=== PATIENT | female | born 1945 | race African-American/Black ===

== ENCOUNTER → 2016-10-16 | Outpatient (CLI) | payer OTHER, MEDICAID ==
[2012-08-27 10:45] VITALS: BP 141/70
== END ==
LOC: RAD 14:10
PROVIDERS: ATTEND Internal Medicine
DX: Z12.31 Encounter for screening mammogram for malignant neoplasm of breast (principal)
CPT/HCPCS: 77067

== ENCOUNTER 2017-05-25 12:12 | Observation (INO) | payer OTHER, MEDICAID ==
[2017-05-25 14:58] LABS: BASOPHILS # (AUTO) 0.1 X10^3/uL (0.0-0.1); BASOPHILS % (AUTO) 0.9 % (0.2-1.0); EOSINOPHILS # (AUTO) 0.2 x10^3/uL (0.0-0.2); EOSINOPHILS % (AUTO) 1.5 % (0.9-2.9); HEMATOCRIT 36.1 % (36.0-47.0); HEMOGLOBIN 12.2 g/dL (12.0-16.0); LYMPHOCYTES % (AUTO) 18.8 % (21.0-51.0); MEAN CORPUSCULAR HEMOGLOBIN 26.3 pg (27.0-34.0); MEAN CORPUSCULAR HGB CONC 33.7 g/dL (33.0-35.0); MEAN PLATELET VOLUME 9.3 fL (7.4-11.0); MONOCYTES % (AUTO) 8.9 % (0.0-13.0); NEUTROPHILS # (AUTO) 7.5 x10^3/uL (2.2-4.8); NEUTROPHILS % (AUTO) 69.9 % (42.0-75.0); PLATELET COUNT 332 X10^3/uL (150.0-450.0); RED BLOOD COUNT 4.63 X10^6/uL (3.5-5.4); WHITE BLOOD COUNT 10.8 X10^3/uL (3.6-10.0)
[2017-05-25 15:08] LABS: ALBUMIN 3.2 g/dL (3.4-5.0); CALCIUM 8.9 mg/dL (8.5-10.1); CARBON DIOXIDE 25.4 mmol/L (21-32); COR CA(FOR HYPOALB) 9.5 mg/dL (8.5-10.1); CREATININE 1.27 mg/dL (0.55-1.02); TOTAL PROTEIN 7.5 g/dL (6.4-8.2)
[2017-05-25] MEDS: NS 1000 ML 1,000 ML IV SCH (15:13)
--- NOTE | 2017-05-25 15:39 | DR.UPDATE ---
H&P Update History and Physical Update: WAS SEEN IN THE OFFICE TODAY. A H&P WAS COMPLETED PRIOR TO ADMISSION. PATIENT HAS BEEN SEEN AND EXAMINED WITH NO CHANGES NOTED TO H&P. Changes noted: NO Yes with the following:
[2017-05-25] MEDS ORDERED: NS 100 ML IV 100 ML IV ONE (18:02)
--- NOTE | 2017-05-25 18:52 | RAD ---
History: Low back pain Study: Five views lumbar spine including AP and lateral and both obliques and lateral coned view. Comparison: None Findings: There is normal alignment with severe L3-4 and L4-5 disc space narrowing and severe anterio r osteophyte formation about the disc spaces diffusely. There is no fracture or compression demonstra osvaldo. There are cholecystectomy clips. Impression: Severe diffuse degenerative disc disease Reported By:
--- NOTE | 2017-05-25 19:03 | CT ---
CT abdomen and pelvis with contrast Indication: Abdominal pain Technique: Helical images through the abdomen and pelvis with contrast. Coronal and sagittal reformat s. Comparison: 10/18/2016 CT Findings: Limited images through the lower chest shows no acute abnormality with cardiomegaly and vas cular calcifications noted. Review of bone windows shows spine and pelvis degenerative change without destructive osseous lesion. Abdomen: The adrenal glands, spleen, pancreas, stomach and small bowel show no acute abnormality. Non inflamed colonic diverticulum noted the appendix is normal. Small fat containing umbilical hernia not ed. Vascular plaque noted. The right kidney is normal without hydroureteronephrosis. Moderate vascular plaque noted. There is pe ripheral calcification adjacent to a left upper pole renal cyst on axial image 24. Left lower pole re nal cyst seen on axial image 35. Pelvis: The urinary bladder and rectum are normal. Atrophic uterus is noted. No adnexal region lesion s seen. Impression: 1. No significant change in the left upper pole Bosniak 2 F cyst. Recommend MR follow-up in 6 months to exclude neoplasm. 2. Cardiomegaly, vascular calcifications, noninflamed diverticulosis, spine degenerative change other findings as above. Reported By:
[2017-05-25 19:06] LABS: CKMB % 1.4 % (<4); CREATINE KINASE 70 Units/L (26-192); CREATINE KINASE MB < 1.0 ng/mL (0-4.0); TROPONIN I < 0.02 ng/mL (0-1.5)
[2017-05-25 20:15] LABS: BILIRUBIN,URINE NEGATIVE (NEGATIVE); BLOOD/HEMOGLOBIN,URINE NEGATIVE (NEGATIVE); GLUCOSE, URINE NEGATIVE (NEGATIVE); KETONES,URINE NEGATIVE (NEGATIVE); LEUKOCYTE ESTERASE ,URINE NEGATIVE (NEGATIVE); NITRITES,URINE NEGATIVE (NEGATIVE); PROTEIN,URINE 1+ (NEGATIVE); UROBILINOGEN,URINE NORMAL (NORMAL)
[2017-05-25 20:20] LABS: APPEARANCE,URINE CLEAR (CLEAR); COLOR,URINE YELLOW (YELLOW)
[2017-05-25 20:34] LABS: AMORPHOUS SEDIMENT,UR TRACE /HPF (NEGATIVE); BACTERIA,URINE TRACE /HPF (NEGATIVE); RBC,URINE NONE SEEN /HPF (NONE SEEN); SQUAMOUS EPITHELIAL CELL,UR FEW /HPF (NEGATIVE)
[2017-05-25] MEDS: NORCO 5/325 MG TAB PO PRN (21:14)
[2017-05-25 23:11] LABS: CKMB % 1.9 % (<4); CREATINE KINASE 52 Units/L (26-192); CREATINE KINASE MB < 1.0 ng/mL (0-4.0); TROPONIN I < 0.02 ng/mL (0-1.5)
[2017-05-26 02:44] LABS: CKMB % 2.1 % (<4); CREATINE KINASE 48 Units/L (26-192); CREATINE KINASE MB < 1.0 ng/mL (0-4.0); TROPONIN I < 0.02 ng/mL (0-1.5)
[2017-05-26] MEDS: NS 1000 ML 1,000 ML IV SCH ×2 (02:59→15:41)
[2017-05-26] MEDS: NORCO 5/325 MG TAB PO PRN (06:24)
[2017-05-26 06:54] LABS: BASOPHILS # (AUTO) 0.1 X10^3/uL (0.0-0.1); EOSINOPHILS # (AUTO) 0.2 x10^3/uL (0.0-0.2); EOSINOPHILS % (AUTO) 1.7 % (0.9-2.9); HEMOGLOBIN 11.9 g/dL (12.0-16.0); LYMPHOCYTES # (AUTO) 2.2 X10^3/uL (1.3-2.9); LYMPHOCYTES % (AUTO) 24.2 % (21.0-51.0); MEAN CORPUSCULAR HEMOGLOBIN 25.8 pg (27.0-34.0); MEAN CORPUSCULAR VOLUME 78.1 fL (80.0-100.0); MEAN PLATELET VOLUME 9.4 fL (7.4-11.0); MONOCYTES # (AUTO) 0.8 x10^3/uL (0.3-0.8); MONOCYTES % (AUTO) 8.5 % (0.0-13.0); NEUTROPHILS % (AUTO) 64.6 % (42.0-75.0); PLATELET COUNT 318 X10^3/uL (150.0-450.0); RED BLOOD COUNT 4.61 X10^6/uL (3.5-5.4); RED CELL DISTRIBUTION WIDTH 15.5 % (11.6-16.5); WHITE BLOOD COUNT 9.3 X10^3/uL (3.6-10.0)
[2017-05-26 07:01] LABS: HYPOCHROMASIA SLIGHT; MICROCYTOSIS SLIGHT; PLATELET MORPHOLOGY COMMENT NORMAL (NORMAL)
[2017-05-26 07:04] LABS: ALANINE AMINOTRANSFERASE 10 Units/L (12-78); ALBUMIN 3.1 g/dL (3.4-5.0); ALKALINE PHOSPHATASE 84 Units/L (46-116); ASPARTATE AMINO TRANSFERASE 13 Units/L (15-37); BLOOD UREA NITROGEN 11 mg/dL (7-18); CALCIUM 8.9 mg/dL (8.5-10.1); CARBON DIOXIDE 27.2 mmol/L (21-32); CHLORIDE 107 mmol/L (98-107); COR CA(FOR HYPOALB) 9.6 mg/dL (8.5-10.1); COR NA(FOR HYPERGLY) 144 mmol/L (136-145); CREATININE 1.06 mg/dL (0.55-1.02); SODIUM 144 mmol/L (136-145); TOTAL PROTEIN 7.3 g/dL (6.4-8.2); eGFR BLACK RACES > 60 (>60); eGFR NON BLACK RACES 54 (>60)
[2017-05-26 11:48] VITALS: BMI 47.5
[2017-05-26] MEDS: GLUCOPHAGE PO SCH ×2 (16:28→16:31)
[2017-05-26] MEDS: COZAAR PO SCH (17:29)
[2017-05-26] MEDS: PRADAXA PO SCH (17:29)
[2017-05-26] MEDS: SYNTHROID 25 mcg TAB PO SCH (17:29)
[2017-05-26] MEDS: ASPIRIN EC 81 MG PO SCH (17:29)
[2017-05-26] MEDS: LIPITOR TAB 40 MG PO SCH (20:54)
[2017-05-26] MEDS: LOPRESSOR TAB 50 MG PO SCH (20:55)
[2017-05-26] MEDS: PROTONIX INJ 40 MG VIAL IVP SCH (20:55)
[2017-05-26] MEDS: SNACK - Diabetic Appropriate PO SCH ×2 (20:55)
[2017-05-26] MEDS: KLONOPIN TAB 0.5 MG PO SCH (20:55)
[2017-05-27] MEDS: COMBIGAN EYE DROPS EACHEYE SCH ×3 (00:55→20:14)
[2017-05-27] MEDS: TRAVATAN Z EACHEYE SCH ×2 (00:55→20:59)
[2017-05-27] MEDS: NS 1000 ML 1,000 ML IV SCH ×5 (06:30→23:00)
[2017-05-27 06:46] LABS: BASOPHILS # (AUTO) 0.1 X10^3/uL (0.0-0.1); BASOPHILS % (AUTO) 1.2 % (0.2-1.0); EOSINOPHILS # (AUTO) 0.3 x10^3/uL (0.0-0.2); HEMOGLOBIN 10.8 g/dL (12.0-16.0); LYMPHOCYTES # (AUTO) 2.5 X10^3/uL (1.3-2.9); LYMPHOCYTES % (AUTO) 27.8 % (21.0-51.0); MEAN CORPUSCULAR HEMOGLOBIN 26.1 pg (27.0-34.0); MEAN CORPUSCULAR HGB CONC 33.6 g/dL (33.0-35.0); MEAN CORPUSCULAR VOLUME 77.7 fL (80.0-100.0); MEAN PLATELET VOLUME 9.5 fL (7.4-11.0); MONOCYTES # (AUTO) 0.9 x10^3/uL (0.3-0.8); MONOCYTES % (AUTO) 9.8 % (0.0-13.0); NEUTROPHILS # (AUTO) 5.2 x10^3/uL (2.2-4.8); NEUTROPHILS % (AUTO) 58.2 % (42.0-75.0); PLATELET COUNT 283 X10^3/uL (150.0-450.0); RED BLOOD COUNT 4.12 X10^6/uL (3.5-5.4); RED CELL DISTRIBUTION WIDTH 15.3 % (11.6-16.5)
[2017-05-27] MEDS: GLUCOPHAGE PO SCH ×2 (06:54→16:12)
[2017-05-27 06:55] LABS: ALANINE AMINOTRANSFERASE 9 Units/L (12-78); ALBUMIN 2.8 g/dL (3.4-5.0); ALKALINE PHOSPHATASE 74 Units/L (46-116); ASPARTATE AMINO TRANSFERASE 14 Units/L (15-37); BLOOD UREA NITROGEN 10 mg/dL (7-18); CALCIUM 8.5 mg/dL (8.5-10.1); CARBON DIOXIDE 26.6 mmol/L (21-32); CHLORIDE 108 mmol/L (98-107); COR CA(FOR HYPOALB) 9.5 mg/dL (8.5-10.1); CREATININE 0.98 mg/dL (0.55-1.02); SODIUM 145 mmol/L (136-145); TOTAL PROTEIN 6.6 g/dL (6.4-8.2); eGFR BLACK RACES > 60 (>60); eGFR NON BLACK RACES 59 (>60)
[2017-05-27] MEDS ORDERED: POTASSIUM CHLORIDE LIQ 20 MEQ UDC PO PRN (07:04)
[2017-05-27] MEDS ORDERED: POTASSIUM CHL 60 MEQ/NS 0.45% 500 ML IV PRN (07:04)
[2017-05-27] MEDS ORDERED: K-RIDER 10 MEQ/NS 100 ML 10 MEQ/100 ML BAG IV PRN (07:04)
[2017-05-27] MEDS ORDERED: MAGNESIUM SULFATE 1 GM/100 mL PREMIX 1 GM/100 ML BAG IV PRN (07:04)
[2017-05-27] MEDS: POTASSIUM CHL 40 MEQ/NS 0.45% 500 ML IV PRN (08:39)
[2017-05-27] MEDS: ASPIRIN EC 81 MG PO SCH (08:39)
[2017-05-27] MEDS: LIPITOR TAB 40 MG PO SCH (08:39)
[2017-05-27] MEDS: PROTONIX INJ 40 MG VIAL IVP SCH ×2 (08:39→20:15)
[2017-05-27] MEDS: MILK OF MAGNESIA PO SCH ×2 (08:39→20:14)
[2017-05-27] MEDS: COLACE CAP 100 MG PO SCH ×2 (08:40→20:14)
[2017-05-27] MEDS: MAG-OX TAB PO PRN ×2 (08:40→16:14)
[2017-05-27] MEDS: COZAAR PO SCH (08:40)
[2017-05-27] MEDS: PRADAXA PO SCH (08:40)
[2017-05-27] MEDS: LOPRESSOR TAB 50 MG PO SCH ×2 (08:40→20:14)
[2017-05-27] MEDS ORDERED: GLUCOPHAGE ONE (15:59)
[2017-05-27] MEDS: SYNTHROID 25 mcg TAB PO SCH (16:12)
[2017-05-27] MEDS: SNACK - Diabetic Appropriate PO SCH (20:13)
[2017-05-27] MEDS: KLONOPIN TAB 0.5 MG PO SCH (20:14)
[2017-05-27] MEDS: NORCO 5/325 MG TAB PO PRN (20:59)
[2017-05-28] MEDS ORDERED: GLUCOPHAGE ONE ×2 (05:50→16:31)
[2017-05-28] MEDS: GLUCOPHAGE PO SCH ×2 (06:02→16:42)
[2017-05-28 06:12] LABS: BASOPHILS % (AUTO) 0.5 % (0.2-1.0); EOSINOPHILS # (AUTO) 0.3 x10^3/uL (0.0-0.2); EOSINOPHILS % (AUTO) 3.2 % (0.9-2.9); HEMATOCRIT 31.2 % (36.0-47.0); HEMOGLOBIN 10.5 g/dL (12.0-16.0); LYMPHOCYTES # (AUTO) 2.3 X10^3/uL (1.3-2.9); LYMPHOCYTES % (AUTO) 25.7 % (21.0-51.0); MEAN CORPUSCULAR HEMOGLOBIN 26.2 pg (27.0-34.0); MEAN CORPUSCULAR HGB CONC 33.7 g/dL (33.0-35.0); MEAN CORPUSCULAR VOLUME 77.8 fL (80.0-100.0); MEAN PLATELET VOLUME 9.4 fL (7.4-11.0); MONOCYTES # (AUTO) 0.9 x10^3/uL (0.3-0.8); MONOCYTES % (AUTO) 9.5 % (0.0-13.0); NEUTROPHILS # (AUTO) 5.4 x10^3/uL (2.2-4.8); NEUTROPHILS % (AUTO) 61.1 % (42.0-75.0); PLATELET COUNT 272 X10^3/uL (150.0-450.0); RED BLOOD COUNT 4.01 X10^6/uL (3.5-5.4); RED CELL DISTRIBUTION WIDTH 15.4 % (11.6-16.5); WHITE BLOOD COUNT 8.9 X10^3/uL (3.6-10.0)
[2017-05-28 06:17] LABS: ALANINE AMINOTRANSFERASE 7 Units/L (12-78); ALBUMIN 2.7 g/dL (3.4-5.0); ALKALINE PHOSPHATASE 87 Units/L (46-116); ASPARTATE AMINO TRANSFERASE 11 Units/L (15-37); BLOOD UREA NITROGEN 10 mg/dL (7-18); CALCIUM 8.2 mg/dL (8.5-10.1); CARBON DIOXIDE 29.1 mmol/L (21-32); CHLORIDE 109 mmol/L (98-107); COR CA(FOR HYPOALB) 9.2 mg/dL (8.5-10.1); COR NA(FOR HYPERGLY) 146 mmol/L (136-145); CREATININE 0.98 mg/dL (0.55-1.02); MAGNESIUM 1.7 mg/dL (1.7-2.9); SODIUM 145 mmol/L (136-145); TOTAL PROTEIN 6.2 g/dL (6.4-8.2); eGFR BLACK RACES > 60 (>60); eGFR NON BLACK RACES 59 (>60)
[2017-05-28] MEDS: NS 1000 ML 1,000 ML IV SCH ×2 (08:04→20:09)
[2017-05-28] MEDS: LOPRESSOR TAB 50 MG PO SCH ×2 (09:16→20:10)
[2017-05-28] MEDS: PROTONIX INJ 40 MG VIAL IVP SCH ×2 (09:16→20:11)
[2017-05-28] MEDS: ASPIRIN EC 81 MG PO SCH (09:16)
[2017-05-28] MEDS: LIPITOR TAB 40 MG PO SCH (09:16)
[2017-05-28] MEDS: COZAAR PO SCH (09:17)
[2017-05-28] MEDS: COMBIGAN EYE DROPS EACHEYE SCH ×2 (09:17→20:09)
[2017-05-28] MEDS: PRADAXA PO SCH (09:17)
[2017-05-28] MEDS: MILK OF MAGNESIA PO SCH ×2 (09:22→20:10)
[2017-05-28] MEDS: COLACE CAP 100 MG PO SCH ×2 (09:22→20:09)
[2017-05-28] MEDS: MAG-OX TAB PO PRN (10:40)
[2017-05-28] MEDS: PEPCID 20 MG IV PREMIX* 20 MG/50 ML BAG IV SCH ×2 (10:40→20:10)
[2017-05-28] MEDS: LEVSIN/MAALOX/LIDOC VISC PO SCH ×4 (10:40→20:35)
[2017-05-28] MEDS: K-LYTE EFFERVESCENT PO PRN (10:40)
[2017-05-28] MEDS: SYNTHROID 25 mcg TAB PO SCH (16:42)
[2017-05-28] MEDS: SNACK - Diabetic Appropriate PO SCH (20:08)
[2017-05-28] MEDS: KLONOPIN TAB 0.5 MG PO SCH (20:09)
[2017-05-28] MEDS: NORCO 5/325 MG TAB PO PRN (20:11)
[2017-05-28] MEDS: TRAVATAN Z EACHEYE SCH (20:13)
[2017-05-29] MEDS ORDERED: GLUCOPHAGE ONE ×2 (05:34→16:26)
[2017-05-29] MEDS: GLUCOPHAGE PO SCH ×2 (06:00→16:30)
[2017-05-29 06:33] LABS: BASOPHILS # (AUTO) 0.1 X10^3/uL (0.0-0.1); EOSINOPHILS # (AUTO) 0.4 x10^3/uL (0.0-0.2); HEMATOCRIT 35.2 % (36.0-47.0); HEMOGLOBIN 11.9 g/dL (12.0-16.0); LYMPHOCYTES # (AUTO) 2.2 X10^3/uL (1.3-2.9); LYMPHOCYTES % (AUTO) 23.1 % (21.0-51.0); MEAN CORPUSCULAR HEMOGLOBIN 26.1 pg (27.0-34.0); MEAN CORPUSCULAR HGB CONC 33.8 g/dL (33.0-35.0); MEAN CORPUSCULAR VOLUME 77.3 fL (80.0-100.0); MEAN PLATELET VOLUME 9.3 fL (7.4-11.0); MONOCYTES # (AUTO) 0.8 x10^3/uL (0.3-0.8); MONOCYTES % (AUTO) 8.5 % (0.0-13.0); NEUTROPHILS # (AUTO) 6.2 x10^3/uL (2.2-4.8); NEUTROPHILS % (AUTO) 63.4 % (42.0-75.0); PLATELET COUNT 307 X10^3/uL (150.0-450.0); RED BLOOD COUNT 4.55 X10^6/uL (3.5-5.4); RED CELL DISTRIBUTION WIDTH 15.3 % (11.6-16.5); WHITE BLOOD COUNT 9.7 X10^3/uL (3.6-10.0)
[2017-05-29 06:50] LABS: ALANINE AMINOTRANSFERASE 13 Units/L (12-78); ALBUMIN 3.1 g/dL (3.4-5.0); ALKALINE PHOSPHATASE 89 Units/L (46-116); ASPARTATE AMINO TRANSFERASE 14 Units/L (15-37); BLOOD UREA NITROGEN 12 mg/dL (7-18); CALCIUM 8.7 mg/dL (8.5-10.1); CARBON DIOXIDE 28.9 mmol/L (21-32); CHLORIDE 107 mmol/L (98-107); COR CA(FOR HYPOALB) 9.4 mg/dL (8.5-10.1); CREATININE 1.34 mg/dL (0.55-1.02); MAGNESIUM 1.7 mg/dL (1.7-2.9); SODIUM 145 mmol/L (136-145); TOTAL PROTEIN 7.4 g/dL (6.4-8.2); eGFR BLACK RACES 50 (>60); eGFR NON BLACK RACES 41 (>60)
[2017-05-29] MEDS: COZAAR PO SCH (08:53)
[2017-05-29] MEDS: PRADAXA PO SCH (08:53)
[2017-05-29] MEDS: COLACE CAP 100 MG PO SCH ×2 (08:53→20:56)
[2017-05-29] MEDS: LIPITOR TAB 40 MG PO SCH (08:53)
[2017-05-29] MEDS: LOPRESSOR TAB 50 MG PO SCH ×2 (08:54→20:58)
[2017-05-29] MEDS: ASPIRIN EC 81 MG PO SCH (08:54)
[2017-05-29] MEDS: NORCO 5/325 MG TAB PO PRN ×2 (08:56→14:53)
[2017-05-29] MEDS: PEPCID 20 MG IV PREMIX* 20 MG/50 ML BAG IV SCH ×2 (08:59→20:59)
[2017-05-29] MEDS: PROTONIX INJ 40 MG VIAL IVP SCH ×2 (08:59→20:59)
[2017-05-29] MEDS: LEVSIN/MAALOX/LIDOC VISC PO SCH ×4 (09:00→20:57)
[2017-05-29] MEDS: COMBIGAN EYE DROPS EACHEYE SCH ×2 (09:00→20:57)
[2017-05-29] MEDS: MILK OF MAGNESIA PO SCH ×2 (09:00→20:58)
[2017-05-29] MEDS: POTASSIUM CHL 40 MEQ/NS 0.45% 500 ML IV PRN (10:25)
[2017-05-29] MEDS: NS 1000 ML 1,000 ML IV SCH ×2 (10:25→23:32)
--- NOTE | 2017-05-29 12:15 | PCM.PROG ---
Progress Note - Progress Note for Day of Date: 05/28/17 - Subjective Subjective: WAS ADMITTED ON 05/25/2017 FOR ABDOMINAL PAIN, NAUSEA, AND VERTIGO. ON ADMISSION, LABS REVEALED THAT PATIENT WAS POSITIVE FOR H- PYLORI. SHE REPORTS THAT VERTIGO HAS IMPROVED. TODAY, PATIENT IS ALERT AND ORIENTED, SITTING UP IN BED ON MORNING ROUNDS. SHE CONTINUES WITH MILD ABDOMINAL PAIN AND NAUSEA. ON EXAMINATION, HEART IS REGULAR IN RATE AND RHYTHM. BILATERAL LUNGS ARE NOTED WITH DIMINISHED LUNG SOUNDS THROUGHOUT. ABDOMEN IS ROUND, SOFT, AND NOTED WITH MILD, EPIGASTRIC PAIN ON PALPATION. NORMAL BOWEL SOUNDS NOTED IN ALL QUADRANTS. THERE IS NORMAL RANGE OF MOTION NOTED TO ALL EXTREMITIES. HER VITALS THIS MORNING ARE 97.8-65-18-96%-161/85. LABS WRE OBTAINED. ABNORMAL LAB VALUES INCLUDE THE FOLLOWING: HGB 10.5, HCT 31.2, POTASSIUM 3.4, CHLORIDE 109, GLUCOSE 121, CALCIUM 8.2, AST 11, ALT 7, TOTAL PROTEIN 6.2, ALBUMIN 2.7. TODAY, WE WILL START PEPCID 20MG IV Q12H AND GI COCKTAIL 15ML PO QID FOR TREATMENT OF H-PYLORI AND ABDOMINAL PAIN. OTHERWISE, WE WILL CONTINUE WITH CURRENT PLAN OF CARE. WE PLAN TO FOLLOW UP WITH AM LABS AND CONTINUE TO MONITOR PATIENT. - Past Medical Family Social History Past Med/Fam/Surg Hx: No changes since H&P Allergies: Allergies No Known Drug Allergies Allergy (Verified 05/25/17 14:53) - Review of Systems ROS: No change since H&P - Vital Signs and I&O's Vital Signs: Temperature 97.1 F Pulse Rate [Right Brachial] 72 Respiratory Rate 20 Blood Pressure [Right Arm] 149/104 Blood Pressure 141/70 O2 Sat by Pulse Oximetry 97 Intake and Output: Intake & Output 05/27/17 05/28/17 05/29/17 05/30/17 11:59 11:59 11:59 11:59 Intake Total 2615 3147 2288 Output Total 1700 603 Balance 915 6041 2288 - Physical Exam Oriented: Normal Eyes: Normal. negative: Blurred Vision, Diplopia, Discharge, Pain, Redness, Photophobia, Other Ear: Normal. negative: Right, Left, Swelling, Ecchymosis, Hemotypanum, Abrasion , Laceration Nose: Normal. negative: Injected, Discharge, Blood, Other Throat: Normal. negative: Tonsillar Hypertrophy, Red, Exudate, Dry, Other Respiratory: Generalized, Diminished Cardiovascular: Normal. negative: S3, S4, Murmur : Normal Auscultation: Bowel Sounds: Normal Palpation: Normal Tenderness: Epigastric. negative: Rebound, Guarding, Rigidity Skin: Normal Musculoskeletal: Normal Psychiatric: Normal Mood Description: Calm Affect: Normal Speech Pattern: Clear, Appropriate - Laboratory and Diagnostics Result Diagrams: 05/29/17 06:08 05/29/17 06:08 Labs: 05/25/17 19:58 Urine,Clean Catch Urine Culture - Final Laboratory WBC 9.7 X10^3/uL (3.6-10.0) 05/29/17 06:08 RBC 4.55 X10^6/uL (3.5-5.4) 05/29/17 06:08 Hgb 11.9 g/dL (12.0-16.0) L 05/29/17 06:08 Hct 35.2 % (36.0-47.0) L 05/29/17 06:08 MCV 77.3 fL (80.0-100.0) L 05/29/17 06:08 MCH 26.1 pg (27.0-34.0) L 05/29/17 06:08 MCHC 33.8 g/dL (33.0-35.0) 05/29/17 06:08 RDW 15.3 % (11.6-16.5) 05/29/17 06:08 Plt Count 307 X10^3/uL (150.0-450.0) 05/29/17 06:08 Plt Count Comment Adequate (ADEQUATE) 05/26/17 06:20 MPV 9.3 fL (7.4-11.0) 05/29/17 06:08 Neut % 63.4 % (42.0-75.0) 05/29/17 06:08 Lymph % 23.1 % (21.0-51.0) 05/29/17 06:08 [place] % 8.5 % (0.0-13.0) 05/29/17 06:08 Eos % 4.0 % (0.9-2.9) H 05/29/17 06:08 Baso % 1.0 % (0.2-1.0) 05/29/17 06:08 Neut # 6.2 x10^3/uL (2.2-4.8) H 05/29/17 06:08 Lymph # 2.2 X10^3/uL (1.3-2.9) 05/29/17 06:08 [place] # 0.8 x10^3/uL (0.3-0.8) 05/29/17 06:08 Eos # 0.4 x10^3/uL (0.0-0.2) H 05/29/17 06:08 Baso # 0.1 X10^3/uL (0.0-0.1) 05/29/17 06:08 Absolute Nucleated RBC 0.0 /100WBC 05/29/17 06:08 Plt Morphology Comment Normal (NORMAL) 05/26/17 06:20 RBC Morphology Abnormal (NORMAL) A 05/26/17 06:20 Hypochromasia Slight A 05/26/17 06:20 Microcytosis Slight A 05/26/17 06:20 Sodium 145 mmol/L (136-145) 05/29/17 06:08 Corrected Sodium TNP 05/29/17 06:08 Potassium 3.3 mmol/L (3.5-5.1) L 05/29/17 06:08 Chloride 107 mmol/L (98-107) 05/29/17 06:08 Carbon Dioxide 28.9 mmol/L (21-32) 05/29/17 06:08 BUN 12 mg/dL (7-18) 05/29/17 06:08 Creatinine 1.34 mg/dL (0.55-1.02) H 05/29/17 06:08 Est GFR (MDRD) Af Amer 50 (>60) L 05/29/17 06:08 Est GFR (MDRD) Non-Af 41 (>60) L 05/29/17 06:08 Glucose 96 mg/dL (65-99) 05/29/17 06:08 POC Glucose (mg/dL) 120 mg/dL (65-99) H 05/29/17 11:14 Calcium 8.7 mg/dL (8.5-10.1) 05/29/17 06:08 Corrected Calcium 9.4 mg/dL (8.5-10.1) 05/29/17 06:08 Magnesium 1.7 mg/dL (1.7-2.9) 05/29/17 06:08 Total Bilirubin 0.30 mg/dL (0.2-1.0) 05/29/17 06:08 AST 14 Units/L (15-37) L 05/29/17 06:08 ALT 13 Units/L (12-78) 05/29/17 06:08 Alkaline Phosphatase 89 Units/L (46-116) 05/29/17 06:08 Creatine Kinase 48 Units/L (26-192) 05/26/17 01:53 CK-MB (CK-2) < 1.0 ng/mL (0-4.0) 05/26/17 01:53 CK/CKMB % Calc 2.1 % (<4) 05/26/17 01:53 Troponin I < 0.02 ng/mL (0-1.5) 05/26/17 01:53 Total Protein 7.4 g/dL (6.4-8.2) 05/29/17 06:08 Albumin 3.1 g/dL (3.4-5.0) L 05/29/17 06:08 Globulin 4.3 g/dL (2.5-4.5) 05/29/17 06:08 Albumin/Globulin Ratio 0.7 Ratio (1.1-2.1) L 05/29/17 06:08 Amylase 47 Units/L (25-115) 05/25/17 14:39 Lipase 84 Units/L (73-393) 05/25/17 14:39 Specimen Type Clean catch urine 05/25/17 19:58 Urine Color Yellow (YELLOW) 05/25/17 19:58 Urine Appearance Clear (CLEAR) 05/25/17 19:58 Urine pH 6.0 (5.0 - 8.0) 05/25/17 19:58 Ur Specific [place] 1.005 (1.000-1.030) 05/25/17 19:58 Urine Protein 1+ (NEGATIVE) 05/25/17 19:58 Urine Glucose (UA) Negative (NEGATIVE) 05/25/17 19:58 Urine Ketones Negative (NEGATIVE) 05/25/17 19:58 Urine Occult Blood Negative (NEGATIVE) 05/25/17 19:58 Urine Nitrite Negative (NEGATIVE) 05/25/17 19:58 Urine Bilirubin Negative (NEGATIVE) 05/25/17 19:58 Urine Urobilinogen Normal (NORMAL) 05/25/17 19:58 Ur Leukocyte Esterase Negative (NEGATIVE) 05/25/17 19:58 Urine RBC None seen /HPF (NONE SEEN) 05/25/17 19:58 Urine WBC Rare /HPF (NONE SEEN) 05/25/17 19:58 Ur Squamous Epith Cells Few /HPF (NEGATIVE) 05/25/17 19:58 Amorphous Sediment Trace /HPF (NEGATIVE) 05/25/17 19:58 Urine Bacteria Trace /HPF (NEGATIVE) 05/25/17 19:58 Ur Culture Indicated? Yes/culture set up 05/25/17 19:58 H. pylori IgG Antibody Positive (NEGATIVE) A 05/25/17 14:39 - Plan (1) H. pylori infection Status: Acute Plan: PEPCID, PROTONIX, GI COCKTAIL, CONTINUE TO MONITOR (2) Abdominal pain Status: Acute Qualifiers: Abdominal location: epigastric Qualified Code(s): R10.13 - Epigastric pain Plan: PEPCID, PROTONIX, GI COCKTAIL, CONTINUE TO MONITOR (3) Hypokalemia Status: Acute Plan: REPLACE WITH PROTOCOL
[2017-05-29] MEDS: SYNTHROID 25 mcg TAB PO SCH (16:30)
[2017-05-29] MEDS: SNACK - Diabetic Appropriate PO SCH (20:56)
[2017-05-29] MEDS: KLONOPIN TAB 0.5 MG PO SCH (20:58)
[2017-05-29] MEDS: TRAVATAN Z EACHEYE SCH (20:59)
[2017-05-30] MEDS ORDERED: GLUCOPHAGE ONE (06:31)
[2017-05-30] MEDS: GLUCOPHAGE PO SCH (06:33)
[2017-05-30 06:49] LABS: BASOPHILS # (AUTO) 0.1 X10^3/uL (0.0-0.1); BASOPHILS % (AUTO) 0.7 % (0.2-1.0); EOSINOPHILS # (AUTO) 0.3 x10^3/uL (0.0-0.2); EOSINOPHILS % (AUTO) 3.6 % (0.9-2.9); HEMATOCRIT 33.5 % (36.0-47.0); HEMOGLOBIN 11.3 g/dL (12.0-16.0); LYMPHOCYTES % (AUTO) 21.5 % (21.0-51.0); MEAN CORPUSCULAR HEMOGLOBIN 26.2 pg (27.0-34.0); MEAN CORPUSCULAR HGB CONC 33.7 g/dL (33.0-35.0); MEAN CORPUSCULAR VOLUME 77.9 fL (80.0-100.0); MEAN PLATELET VOLUME 9.7 fL (7.4-11.0); MONOCYTES # (AUTO) 0.8 x10^3/uL (0.3-0.8); MONOCYTES % (AUTO) 8.4 % (0.0-13.0); NEUTROPHILS # (AUTO) 6.2 x10^3/uL (2.2-4.8); NEUTROPHILS % (AUTO) 65.8 % (42.0-75.0); PLATELET COUNT 291 X10^3/uL (150.0-450.0); RED CELL DISTRIBUTION WIDTH 15.2 % (11.6-16.5); WHITE BLOOD COUNT 9.5 X10^3/uL (3.6-10.0)
[2017-05-30 07:22] LABS: ALANINE AMINOTRANSFERASE 14 Units/L (12-78); ALKALINE PHOSPHATASE 70 Units/L (46-116); ASPARTATE AMINO TRANSFERASE 15 Units/L (15-37); BLOOD UREA NITROGEN 13 mg/dL (7-18); CALCIUM 8.4 mg/dL (8.5-10.1); CARBON DIOXIDE 26.9 mmol/L (21-32); CHLORIDE 107 mmol/L (98-107); COR CA(FOR HYPOALB) 9.2 mg/dL (8.5-10.1); CREATININE 1.11 mg/dL (0.55-1.02); SODIUM 144 mmol/L (136-145); TOTAL PROTEIN 6.8 g/dL (6.4-8.2); eGFR BLACK RACES > 60 (>60); eGFR NON BLACK RACES 51 (>60)
[2017-05-30] MEDS: NORCO 5/325 MG TAB PO PRN (08:00)
[2017-05-30] MEDS: ASPIRIN EC 81 MG PO SCH (09:51)
[2017-05-30] MEDS: COLACE CAP 100 MG PO SCH (09:52)
[2017-05-30] MEDS: COMBIGAN EYE DROPS EACHEYE SCH (09:52)
[2017-05-30] MEDS: LEVSIN/MAALOX/LIDOC VISC PO SCH ×2 (09:53→12:35)
[2017-05-30] MEDS: PROTONIX INJ 40 MG VIAL IVP SCH (09:53)
[2017-05-30] MEDS: PRADAXA PO SCH (09:53)
[2017-05-30] MEDS: COZAAR PO SCH (09:53)
[2017-05-30] MEDS: MILK OF MAGNESIA PO SCH (09:54)
[2017-05-30] MEDS: LOPRESSOR TAB 50 MG PO SCH (09:54)
[2017-05-30] MEDS: PEPCID 20 MG IV PREMIX* 20 MG/50 ML BAG IV SCH (09:54)
[2017-05-30] MEDS: LIPITOR TAB 40 MG PO SCH (09:54)
--- NOTE | 2017-05-30 10:34 | PCM.PROG ---
Progress Note - Progress Note for Day of Date: 05/29/17 - Subjective Subjective: IS BEING TREATED FOR ABDOMINAL PAIN AND H-PYLORI. TODAY, PATIENT IS ALERT AND ORIENTED, SITTING UP IN BED ON MORNING ROUNDS. SHE CONTINUES WITH MILD ABDOMINAL PAIN AND NAUSEA. ON EXAMINATION, HEART IS REGULAR IN RATE AND RHYTHM. BILATERAL LUNGS ARE NOTED WITH DIMINISHED LUNG SOUNDS THROUGHOUT. ABDOMEN IS ROUND, SOFT, AND CONTINUES WITH MILD, EPIGASTRIC PAIN ON PALPATION. NORMAL BOWEL SOUNDS NOTED IN ALL QUADRANTS. THERE IS NORMAL RANGE OF MOTION NOTED TO ALL EXTREMITIES. HER VITALS THIS MORNING ARE 97.1-72-20-97%-149/ 104. LABS WRE OBTAINED. ABNORMAL LAB VALUES INCLUDE THE FOLLOWING: HGB 11.1, HCT 35.2, POTASSIUM 3.3, CREATININE 1.34, AST 14, ALBUMIN 3.1. TODAY, WE WILL REPLACE HER POTASSIUM WITH THE POTASSIUM PROTOCOL. OTHERWISE, WE WILL CONTINUE WITH CURRENT PLAN OF CARE FOR H-PYLORI. WE PLAN TO FOLLOW UP WITH AM LABS AND CONTINUE TO MONITOR PATIENT. - Past Medical Family Social History Past Med/Fam/Surg Hx: No changes since H&P Allergies: Allergies No Known Drug Allergies Allergy (Verified 05/25/17 14:53) - Review of Systems ROS: No change since H&P - Vital Signs and I&O's Vital Signs: Temperature 97.6 F Pulse Rate [Right Brachial] 53 Respiratory Rate 20 Blood Pressure [Right Arm] 204/93 Blood Pressure 141/70 O2 Sat by Pulse Oximetry 97 Intake and Output: Intake & Output 05/27/17 05/28/17 05/29/17 05/30/17 11:59 11:59 11:59 11:59 Intake Total 2615 3147 2288 1550 Output Total 1700 603 Balance 915 2544 2288 1550 - Physical Exam Oriented: Normal Eyes: Normal. negative: Blurred Vision, Diplopia, Discharge, Pain, Redness, Photophobia, Other Ear: Normal. negative: Right, Left, Swelling, Ecchymosis, Hemotypanum, Abrasion , Laceration Nose: Normal. negative: Injected, Discharge, Blood, Other Throat: Normal. negative: Tonsillar Hypertrophy, Red, Exudate, Dry, Other Respiratory: Generalized, Diminished Cardiovascular: Normal. negative: S3, S4, Murmur : Normal Auscultation: Bowel Sounds: Normal Palpation: Normal Tenderness: Epigastric. negative: Rebound, Guarding, Rigidity Skin: Normal Musculoskeletal: Normal Psychiatric: Normal Mood Description: Calm Affect: Normal Speech Pattern: Clear, Appropriate - Laboratory and Diagnostics Result Diagrams: 05/30/17 05:42 05/30/17 05:42 Labs: 05/25/17 19:58 Urine,Clean Catch Urine Culture - Final Laboratory WBC 9.5 X10^3/uL (3.6-10.0) 05/30/17 05:42 RBC 4.30 X10^6/uL (3.5-5.4) 05/30/17 05:42 Hgb 11.3 g/dL (12.0-16.0) L 05/30/17 05:42 Hct 33.5 % (36.0-47.0) L 05/30/17 05:42 MCV 77.9 fL (80.0-100.0) L 05/30/17 05:42 MCH 26.2 pg (27.0-34.0) L 05/30/17 05:42 MCHC 33.7 g/dL (33.0-35.0) 05/30/17 05:42 RDW 15.2 % (11.6-16.5) 05/30/17 05:42 Plt Count 291 X10^3/uL (150.0-450.0) 05/30/17 05:42 Plt Count Comment Adequate (ADEQUATE) 05/26/17 06:20 MPV 9.7 fL (7.4-11.0) 05/30/17 05:42 Neut % 65.8 % (42.0-75.0) 05/30/17 05:42 Lymph % 21.5 % (21.0-51.0) 05/30/17 05:42 [place] % 8.4 % (0.0-13.0) 05/30/17 05:42 Eos % 3.6 % (0.9-2.9) H 05/30/17 05:42 Baso % 0.7 % (0.2-1.0) 05/30/17 05:42 Neut # 6.2 x10^3/uL (2.2-4.8) H 05/30/17 05:42 Lymph # 2.0 X10^3/uL (1.3-2.9) 05/30/17 05:42 [place] # 0.8 x10^3/uL (0.3-0.8) 05/30/17 05:42 Eos # 0.3 x10^3/uL (0.0-0.2) H 05/30/17 05:42 Baso # 0.1 X10^3/uL (0.0-0.1) 05/30/17 05:42 Absolute Nucleated RBC 0.1 /100WBC 05/30/17 05:42 Plt Morphology Comment Normal (NORMAL) 05/26/17 06:20 RBC Morphology Abnormal (NORMAL) A 05/26/17 06:20 Hypochromasia Slight A 05/26/17 06:20 Microcytosis Slight A 05/26/17 06:20 Sodium 144 mmol/L (136-145) 05/30/17 05:42 Corrected Sodium TNP 05/30/17 05:42 Potassium 3.3 mmol/L (3.5-5.1) L 05/30/17 05:42 Chloride 107 mmol/L (98-107) 05/30/17 05:42 Carbon Dioxide 26.9 mmol/L (21-32) 05/30/17 05:42 BUN 13 mg/dL (7-18) 05/30/17 05:42 Creatinine 1.11 mg/dL (0.55-1.02) H 05/30/17 05:42 Est GFR (MDRD) Af Amer > 60 (>60) 05/30/17 05:42 Est GFR (MDRD) Non-Af 51 (>60) L 05/30/17 05:42 Glucose 96 mg/dL (65-99) 05/30/17 05:42 POC Glucose (mg/dL) 103 mg/dL (65-99) H 05/30/17 06:30 Calcium 8.4 mg/dL (8.5-10.1) L 05/30/17 05:42 Corrected Calcium 9.2 mg/dL (8.5-10.1) 05/30/17 05:42 Magnesium 1.7 mg/dL (1.7-2.9) 05/29/17 06:08 Total Bilirubin 0.30 mg/dL (0.2-1.0) 05/30/17 05:42 AST 15 Units/L (15-37) 05/30/17 05:42 ALT 14 Units/L (12-78) 05/30/17 05:42 Alkaline Phosphatase 70 Units/L (46-116) 05/30/17 05:42 Creatine Kinase 48 Units/L (26-192) 05/26/17 01:53 CK-MB (CK-2) < 1.0 ng/mL (0-4.0) 05/26/17 01:53 CK/CKMB % Calc 2.1 % (<4) 05/26/17 01:53 Troponin I < 0.02 ng/mL (0-1.5) 05/26/17 01:53 Total Protein 6.8 g/dL (6.4-8.2) 05/30/17 05:42 Albumin 3.0 g/dL (3.4-5.0) L 05/30/17 05:42 Globulin 3.8 g/dL (2.5-4.5) 05/30/17 05:42 Albumin/Globulin Ratio 0.8 Ratio (1.1-2.1) L 05/30/17 05:42 Amylase 47 Units/L (25-115) 05/25/17 14:39 Lipase 84 Units/L (73-393) 05/25/17 14:39 Specimen Type Clean catch urine 05/25/17 19:58 Urine Color Yellow (YELLOW) 05/25/17 19:58 Urine Appearance Clear (CLEAR) 05/25/17 19:58 Urine pH 6.0 (5.0 - 8.0) 05/25/17 19:58 Ur Specific [place] 1.005 (1.000-1.030) 05/25/17 19:58 Urine Protein 1+ (NEGATIVE) 05/25/17 19:58 Urine Glucose (UA) Negative (NEGATIVE) 05/25/17 19:58 Urine Ketones Negative (NEGATIVE) 05/25/17 19:58 Urine Occult Blood Negative (NEGATIVE) 05/25/17 19:58 Urine Nitrite Negative (NEGATIVE) 05/25/17 19:58 Urine Bilirubin Negative (NEGATIVE) 05/25/17 19:58 Urine Urobilinogen Normal (NORMAL) 05/25/17 19:58 Ur Leukocyte Esterase Negative (NEGATIVE) 05/25/17 19:58 Urine RBC None seen /HPF (NONE SEEN) 05/25/17 19:58 Urine WBC Rare /HPF (NONE SEEN) 05/25/17 19:58 Ur Squamous Epith Cells Few /HPF (NEGATIVE) 05/25/17 19:58 Amorphous Sediment Trace /HPF (NEGATIVE) 05/25/17 19:58 Urine Bacteria Trace /HPF (NEGATIVE) 05/25/17 19:58 Ur Culture Indicated? Yes/culture set up 05/25/17 19:58 H. pylori IgG Antibody Positive (NEGATIVE) A 05/25/17 14:39 - Plan (1) H. pylori infection Status: Acute Plan: PEPCID, PROTONIX, GI COCKTAIL, CONTINUE TO MONITOR (2) Abdominal pain Status: Acute Qualifiers: Abdominal location: epigastric Qualified Code(s): R10.13 - Epigastric pain Plan: PEPCID, PROTONIX, GI COCKTAIL, CONTINUE TO MONITOR (3) Hypokalemia Status: Acute Plan: REPLACE WITH PROTOCOL
[2017-05-30] MEDS: POTASSIUM CHL 40 MEQ/NS 0.45% 500 ML IV PRN (10:45)
[2017-05-30] MEDS: NS 1000 ML 1,000 ML IV SCH (11:55)
[2017-05-30] MEDS: K-LYTE EFFERVESCENT PO PRN (14:04)
[2017-05-30 16:13] VITALS: BP 179/92
== END 2017-05-30 16:10 | disposition home health service (06) ==
LOC: UNDOADMOB 12:12 → MED/SURG 12:12 → ICU 12:26 → MED/SURG 12:26 → ICU 13:55 → MED/SURG 13:55
PROVIDERS: ADMIT Internal Medicine; ATTEND Internal Medicine
DX: R10.13 Epigastric pain (principal); B96.81 Helicobacter pylori [H. pylori] as the cause of diseases classified elsewhere; E87.6 Hypokalemia; E42 Marasmic kwashiorkor; R94.31 Abnormal electrocardiogram [ECG] [EKG]; R11.0 Nausea; I51.7 Cardiomegaly; K57.90 Diverticulosis of intestine, part unspecified, without perforation or abscess without bleeding
CPT/HCPCS: 36415; 72110; 74177; 80053; 81001; 82150; 82550; 82553; 83690; 83735; 84132; 84484; 85025; 86677; 87086; 93005; A4216; A4222; C9113; G8978; G8979; S0028; G0378